=== PATIENT | female | born 1995 | race Caucasian/White ===

== ENCOUNTER 2017-04-10 10:58 | Emergency (ER) | payer SELFPAY ==
[2017-04-10 11:06] VITALS: BP 115/73; BMI 19.5
--- NOTE | 2017-04-10 13:38 | DR.GENAD ---
HPI - PCP Primary Care Physician: damian - Complaint/Symptoms Chief Complaint:: pt stated she has been having right rib pain and upper abd pain for 3 weeks ago last 4 days has been worse. - Source History Provided: Patient - Mode of Arrival Mode of Arrival: Ambulatory - Timing Onset of Chief Complaint: 03/13/17 PMH - PMH Past Medical History: No Past Surgical History: Yes Surgical History: Ortho Surgery - Family History History of Family Medical Conditions: No - Social History Does patient currently use any type of tobacco product: No Have you used tobacco products in the last 12 months: No Type of Tobacco Use: None Does any household member use tobacco: No Alcohol Use: Rarely Do you use any recreational Drugs:: No Lives With: Family Lives Where: Home - infectious screening In the last 2 months have you had wt loss of >10#?: NO Have you had fever, night sweats or hemotysis?: No Have you traveled outside the country in the last 6 months?: No Isolation: Standard ROS - Review of Systems Eyes: No Symptoms Reported ENTM: No Symptoms Reported Respiratoy: No Symptoms Reported Cardiovascular: No Symptoms Reported Gastrointestinal/Abdominal: No Symptoms Reported Genitourinary: No Symptoms Reported Neurological: No Symptoms Reported Musculoskeletal: Rib(s) (RLQ rib pain ) Integumentary: No Symptoms Reported Hematologic/Lymphatic: No Symptoms Reported Endocrine: No Symptoms Reported Psychiatric: No Symptoms Reported All Other Systems: Reviewed and Negative PE - Vital Signs Vitals: Temperature 97.7 F Pulse Rate 76 Respiratory Rate 16 Blood Pressure 115/73 O2 Sat by Pulse Oximetry 100 - General Limitations: No Limitations General Appearance: Alert, In No Apparent Distress - Head Head Exam: Normal Inspection, Atraumatic - Eyes Eye exam: Normal Appearance, PERRL, EOMI - ENT ENT Exam: Normal Exam External Ear Exam: Normal External Inspection TM/Canal Exam: Bilateral Normal Nose Exam: Normal Nose Exam, Sinus Tenderness Mouth Exam: Normal Inspection Throat Exam: Normal Inspection - Neck Neck Exam: Normal Inspection, Full ROM - Chest Chest Inspection: Normal Inspection, Symmetric Chest Wall Rise, Tenderness (RLQ to palpation) - Respiratory Respiratory Exam: Normal Lung Sounds Bilat Respiratory Exam: Bilateral Clear to Auscultation - Cardiovascular Cardiovascular Exam: Regular Rate, Normal Rhythm - Abdominal Exam Abdominal Exam: Normal Inspection, Normal Bowel Sounds Abdominal Tenderness: negative: RUQ, RLQ, LUQ, LLQ, Epigastrium, Suprapubic, Diffuse, Mild, Moderate, Severe, Other - Extremities Extremities Exam: Normal Inspection, Full ROM - Back Back Exam: Normal Inspection, Full ROM - Neurologic Neurological Exam: Alert, Oriented X3, CN II-XII Intact - Psychiatric Psychiatric Exam: Normal Affect, Normal Mood - Skin Skin Exam: Warm, Dry, Intact ROR - Labs Reviewed Result Diagrams: 04/10/17 13:57 04/10/17 13:57 Laboratory: WBC 7.1 X10^3/uL (3.6-10.0) 04/10/17 13:57 RBC 4.83 X10^6/uL (3.5-5.4) 04/10/17 13:57 Hgb 15.2 g/dL (12.0-16.0) 04/10/17 13:57 Hct 44.3 % (36.0-47.0) 04/10/17 13:57 MCV 91.7 fL (80.0-100.0) 04/10/17 13:57 MCH 31.4 pg (27.0-34.0) 04/10/17 13:57 MCHC 34.2 g/dL (33.0-35.0) 04/10/17 13:57 RDW 14.0 % (11.6-16.5) 04/10/17 13:57 Plt Count 223 X10^3/uL (150.0-450.0) 04/10/17 13:57 MPV 7.6 fL (7.4-11.0) 04/10/17 13:57 Neut % 71.3 % (42.0-75.0) 04/10/17 13:57 Lymph % 19.5 % (21.0-51.0) L 04/10/17 13:57 Dyer % 6.2 % (0.0-13.0) 04/10/17 13:57 Eos % 2.0 % (0.9-2.9) 04/10/17 13:57 Baso % 1.0 % (0.2-1.0) 04/10/17 13:57 Neut # 5.1 x10^3/uL (2.2-4.8) H 04/10/17 13:57 Lymph # 1.4 X10^3/uL (1.3-2.9) 04/10/17 13:57 Dyer # 0.4 x10^3/uL (0.3-0.8) 04/10/17 13:57 Eos # 0.1 x10^3/uL (0.0-0.2) 04/10/17 13:57 Baso # 0.1 X10^3/uL (0.0-0.1) 04/10/17 13:57 Absolute Nucleated RBC 0.1 /100WBC 04/10/17 13:57 Sodium 137 mmol/L (136-145) 04/10/17 13:57 Corrected Sodium TNP 04/10/17 13:57 Potassium 4.2 mmol/L (3.5-5.1) 04/10/17 13:57 Chloride 102 mmol/L (98-107) 04/10/17 13:57 Carbon Dioxide 27.1 mmol/L (21-32) 04/10/17 13:57 BUN 16 mg/dL (7-18) 04/10/17 13:57 Creatinine 0.85 mg/dL (0.55-1.02) 04/10/17 13:57 Est GFR (MDRD) Af Amer > 60 (>60) 04/10/17 13:57 Est GFR (MDRD) Non-Af > 60 (>60) 04/10/17 13:57 Glucose 94 mg/dL (65-99) 04/10/17 13:57 Calcium 9.0 mg/dL (8.5-10.1) 04/10/17 13:57 C-Reactive Protein 0.60 mg/L (0-3.0) 04/10/17 13:57 - XRAY XRAY Interpreted by: Radiologist (Chest; No acute abnormality identified) - Diagnosis Discharge Problem: Right-sided chest wall pain - Discharge Plan Condition: Stable - Follow ups/Referrals Follow ups/Referrals: [facility],None [Primary Care Provider] - 3 days - Instructions
[2017-04-10 14:06] LABS: BASOPHILS # (AUTO) 0.1 X10^3/uL (0.0-0.1); EOSINOPHILS # (AUTO) 0.1 x10^3/uL (0.0-0.2); HEMATOCRIT 44.3 % (36.0-47.0); HEMOGLOBIN 15.2 g/dL (12.0-16.0); LYMPHOCYTES # (AUTO) 1.4 X10^3/uL (1.3-2.9); LYMPHOCYTES % (AUTO) 19.5 % (21.0-51.0); MEAN CORPUSCULAR HEMOGLOBIN 31.4 pg (27.0-34.0); MEAN CORPUSCULAR HGB CONC 34.2 g/dL (33.0-35.0); MEAN CORPUSCULAR VOLUME 91.7 fL (80.0-100.0); MEAN PLATELET VOLUME 7.6 fL (7.4-11.0); MONOCYTES # (AUTO) 0.4 x10^3/uL (0.3-0.8); MONOCYTES % (AUTO) 6.2 % (0.0-13.0); NEUTROPHILS # (AUTO) 5.1 x10^3/uL (2.2-4.8); NEUTROPHILS % (AUTO) 71.3 % (42.0-75.0); PLATELET COUNT 223 X10^3/uL (150.0-450.0); RED BLOOD COUNT 4.83 X10^6/uL (3.5-5.4); WHITE BLOOD COUNT 7.1 X10^3/uL (3.6-10.0)
[2017-04-10 14:15] LABS: BLOOD UREA NITROGEN 16 mg/dL (7-18); CARBON DIOXIDE 27.1 mmol/L (21-32); CHLORIDE 102 mmol/L (98-107); CREATININE 0.85 mg/dL (0.55-1.02); SODIUM 137 mmol/L (136-145); eGFR BLACK RACES > 60 (>60); eGFR NON BLACK RACES > 60 (>60)
--- NOTE | 2017-04-10 14:46 | RAD ---
Examination: Chest, PA and lateral views History: Trauma right side chest pain Findings: Normal heart size with clear lungs and pleural spaces. There is no mediastinal or hilar abn ormality. Impression: No chest abnormality demonstrated. Reported By:
== END 2017-04-10 15:45 | disposition home or self-care (01) ==
LOC: ER 11:18
DX: R07.89 Other chest pain (principal)
CPT/HCPCS: 36415; 71020; 80048; 85025; 86140; 99282